=== PATIENT | male | born 1975 | race American Indian/Alaskan Native ===

== ENCOUNTER 2021-01-30 12:00 | Emergency (ER) | payer SELFPAY ==
[~2021-01-30] VITALS: Ht 172.7 cm; Wt 59.0 kg
[2021-01-30 12:12] VITALS: BP_SYST 159
[2021-01-30] MEDS: HYDROcodone/ACETAMIN 5-325 MG TAB (NORCO/ VICODIN) PO ONE (12:45)
[2021-01-30] MEDS ORDERED: HYDR-3917 PO (15:59)
[2021-01-30 16:11] VITALS: BP_SYST 142
== END 2021-01-30 16:11 | disposition home or self-care (01) ==
LOC: EDBD 12:00 → SED 12:00
DX: M24.412 Recurrent dislocation, left shoulder (principal); F17.200 Nicotine dependence, unspecified, uncomplicated
CPT/HCPCS: 73030; 99283